=== PATIENT | male | born 1985 | race African-American/Black ===

== ENCOUNTER 2022-09-22 07:43 | Observation (INO) ==
[2022-09-22] MEDS ORDERED: Lactated Ringers 1000 ml BAG 1,000 ML IV ONE (08:08)
[2022-09-22] MEDS ORDERED: Ondansetron 4 mg VIAL 2 MG/ML 2 ml VIAL IV ONE (08:17)
[2022-09-22] MEDS ORDERED: Charcoal ACTIVATED 50 GM/240 ML BTL PO ONE (08:17)
[2022-09-22] MEDS ORDERED: Charcoal ACTIVATED 25 GM/120 ML BTL PO STA (08:31)
[2022-09-22] MEDS ORDERED: Ondansetron 4 mg VIAL 2 MG/ML 2 ml VIAL ONE (08:32)
[2022-09-22 09:04] LABS: ABS Eosinophils 0.1 10^3/ul (0-0.6); ABS Lymphocytes 1.4 10^3/ul (1.0-4.8); ABS Monocytes 0.5 10^3/ul (0-0.8); Eosinophil % 3.2 %; Hematocrit 47 % (42-52); Lymphocyte % 35.5 %; Mean Corpuscular HGB Conc 34 g/dL (31-36); Mean Corpuscular Hemoglobin 32 pg (27-31); Mean Corpuscular Volume 94 fL (80-94); Mean Platelet Volume 7.8 fL (7.4-10.4); Nucleated Red Blood Cells % 0.1; Platelet Count 270 10^3/uL (150-450); Red Blood Count 5.01 10^6 /uL (4.18-5.48); Red Cell Distribution Width 15 % (10-15); White Blood Count 4.1 10^3/uL (3.5-10.8)
[2022-09-22 09:19] LABS: Urine Benzodiazepine Screen None Detected (None Detect); Urine Cannabinoids Screen None Detected (None Detect); Urine Opiates Screen None Detected (None Detect)
[2022-09-22 09:40] LABS: ALT 26 U/L (7-52); AST 23 U/L (13-39); Acetaminophen < 15 mcg/mL; Albumin 4.4 g/dL (3.2-5.2); Albumin/Globulin Ratio 1.4 (1-3); Alcohol, S < 13 mg/dL (<13); Alkaline Phosphatase 84 U/L (35-149); Anion Gap 7 mmol/L (2-11); Blood Urea Nitrogen 9 mg/dL (6-24); CO2 Carbon Dioxide 29 mmol/L (22-32); Calcium 9.9 mg/dL (8.6-10.3); Chloride 102 mmol/L (101-111); Creatinine, Serum 0.87 mg/dL (0.67-1.17); Globulin 3.2 g/dL (2-4); Glucose 98 mg/dL (70-100); Potassium 3.7 mmol/L (3.5-5.0); Salicylate < 2.50 mg/dL (<30); Sodium 138 mmol/L (135-145); Total Protein 7.6 g/dL (6.4-8.9); eGFR CKD-EPI 115.4 (>60)
[2022-09-22] MEDS ORDERED: Lactated Ringers 1000 ml BAG 1,000 ML IV SCH (12:00)
[2022-09-22] MEDS ORDERED: cefTRIAXone 1 gm/50 mL D5W 1 GM/50 ML BAG IV SCH (21:00)
[2022-09-23] MEDS ORDERED: Lidocaine 2% JELLY 6 ML Topical TOPICAL ONE (12:00)
[2022-09-23 14:13] LABS: Urine Appearance Clear; Urine Bilirubin Negative (Negative); Urine Blood 1+ (Negative); Urine Color Straw; Urine Glucose Negative (Negative); Urine Ketones Negative (Negative); Urine Nitrite Negative (Negative); Urine Protein Negative (Negative); Urine Specific Gravity 1.004 (1.002-1.030); Urine Urobilinogen Negative (Negative)
[2022-09-23 14:18] LABS: Urine Bacteria Absent (Absent); Urine Red Blood Cell Trace(0-2/hpf) (Absent); Urine White Blood Cell Trace(0-5/hpf) (Absent)
[2022-09-24 05:52] VITALS: BP 126/56
[2022-09-24 07:12] LABS: Calcium 9.2 mg/dL (8.6-10.3); Creatinine, Serum 0.97 mg/dL (0.67-1.17); eGFR CKD-EPI 104.4 (>60)
== END 2022-09-24 13:36 | disposition left against medical advice (07) ==
LOC: EDHOLD 07:43 → ED 07:43 → EDHOLD 12:09 → MEDTELE 12:38
PROVIDERS: ADMIT Hospitalist; ATTEND Hospitalist